=== PATIENT | male | born 1990 | race Caucasian/White ===

== ENCOUNTER → 2024-02-29 08:44 | Outpatient (CLI) | payer OTHER, SELFPAY ==
--- NOTE | 2024-02-29 08:47 | DI.US.S_ITS ---
PROCEDURE: US ABDOMEN LIMITED INDICATIONS: BILATERAL GROIN PAIN TECHNIQUE: Real-time focused scanning was performed of the inguinal region, with image documentation. COMPARISON: None. FINDINGS: Isoechoic contents within the right inguinal canal which increases with Valsalva. No left inguinal hernia seen. IMPRESSION: Suspect small fat containing right inguinal hernia. No left inguinal hernia seen. If clinically indicated CT pelvis could be considered for further evaluation. Dictated by: David White M.D. on 02/29/2024 at 13:50 Approved by: David White M.D. on 02/29/2024 at 13:52
== END ==
LOC: US 08:47
DX: R10.2 Pelvic and perineal pain (principal)
CPT/HCPCS: 76705